=== PATIENT | female | born 1995 | race Caucasian/White ===

== ENCOUNTER 2019-03-24 17:42 | Emergency (ER) | payer SELFPAY ==
--- NOTE | 2019-03-24 17:55 | Event Note ---
ED Screening Note Date of service: 03/24/19 Time: 17:52 ED Screening Note: This is a 23 y.o. F. that presents to the ER with chest discomfort and cough for 2 weeks. Patient reports a heavy sensation as if someone is sitting on her chest. Current 1 pp 2 days. She is currently using her friend albuterol inhaler which improve cough. States progressing symptoms over past week. This initial assessment/diagnostic orders/clinical plan/treatment(s) is/are subject to change based on patients health status, clinical progression and re- assessment by fellow clinical providers in the ED. Further treatment and workup at subsequent clinical providers discretion. Patient/guardian urged not to elope from the ED as their condition may be serious if not clinically assessed and managed. Initial orders include: EKG & CXR
--- NOTE | 2019-03-24 19:04 | XRay Report ---
CHEST 1 VIEW INDICATION: Chest Pain. COMPARISON: None. FINDINGS: Support devices: None. Heart: Normal. Lungs/Pleura: No acute pulmonary or pleural findings. IMPRESSION: 1. No acute findings. Signer Name: Darnell Mark MD Signed: 03/24/2019 6:59 PM Workstation Name: [id number]
[2019-03-24] MEDS ORDERED: TYLENOL/CODEINE PO ONE (20:54)
[2019-03-24] MEDS ORDERED: ROBITUSSIN PO ONE (20:54)
[2019-03-24] MEDS ORDERED: DELTASONE PO ONE (21:11)
--- NOTE | 2019-03-24 21:16 | Emergency Department Report ---
Minor Respiratory - HPI Chief Complaint: Chest Pain Stated Complaint: HASMUKH/CHEST PAIN Time Seen by Provider: 03/24/19 17:51 Duration: 3 Days Pain Location: Nose, Chest Severity: moderate Minor Respiratory: Yes Rhinorrhea, Yes Able to Tolerate Fluids, Yes Cough, No Sore Throat, No Ear Pain, No Sick Contacts, No Hemoptysis, No Chest Pain, No Shortness of Breath, No Fever Other History: This is a 23-year-old female presents with intermittent productive coughing 2-3 days. She denies fevers/chills/shortness of breath. The patient states she's been using her inhaler was helping a bit. She denies any history of asthma. ED Review of Systems ROS: Stated complaint: HASMUKH/CHEST PAIN Other details as noted in HPI Comment: All other systems reviewed and negative ED Past Medical Hx - Past Medical History Previous Medical History?: No - Surgical History Past Surgical History?: No - Social History Smoking Status: Current Every Day Smoker - Medications Home Medications: Home Medications Medication Instructions Recorded Confirmed Last Taken Type ALBUTEROL Inhaler (OR & NICU) 2 puff IH QID PRN #1 inhalation 03/24/19 Unknown Rx [ProAir HFA Inhaler] Benzonatate [Tessalon Perles] 100 mg PO Q8HR #20 capsule 03/24/19 Unknown Rx guaiFENesin [Robitussin] 200 mg PO TID #60 ml 03/24/19 Unknown Rx Minor Respiratory Exam - Exam General: Vital signs noted. No distress. Alert and acting appropriately. HEENT: Yes Moist Mucous Membranes, No Pharyngeal Erythema, No Pharyngeal Exudates, No Rhinorrhea, No Conjuctival Injection, No Frontal Tenderness, No Maxillary Tenderness Ear: Neither TM Bulge, Neither TM Erythema, Neither EAC Pain, Neither EAC Discharge Neck: Yes Supple, No Adenopathy Lungs: Yes Good Air Exchange, No Wheezes, No Ronchi, No Stridor, No Cough, No Labored Respirations, No Retractions, No Use of Accessory Muscles, No Other Abnormal Lung Sounds Heart: Yes Regular, No Murmur Abdomen: Yes Normal Bowel Sounds, No Tenderness, No Peritoneal Signs Skin: No Rash, No Edema Neurologic: Alert and oriented, no deficits. Musculoskeletal: Unremarkable. ED Course Vital Signs 03/24/19 17:52 Temperature 98.5 F Pulse Rate 113 H Respiratory 20 Rate Blood Pressure 130/74 O2 Sat by Pulse 99 Oximetry ED Medical Decision Making - Radiology Data Radiology results: report reviewed, image reviewed INDICATION: Chest Pain. COMPARISON: None. FINDINGS: Support devices: None. Heart: Normal. Lungs/Pleura: No acute pulmonary or pleural findings. IMPRESSION: 1. No acute findings. Signer Name: Darnell Mark MD Signed: 03/24/2019 6:59 PM Workstation Name: [id number] Transcribed By: ANA CRISTINA Dictated By: Darnell Mark MD Electronically Authenticated By: Darnell Mark MD Signed Date/Time: 03/24/19 1859 No acute findings - Medical Decision Making This is a 23-year-old female presents with bronchitis. Patient received medication in the reports feeling better. Excellent chest x-ray completed there are no signs of acute inflammatory process Discussed the patient to take medications prescribed and follow up with primary care physician. Patient had no neurological deficit or respiratory distress. Critical care attestation.: If time is entered above; I have spent that time in minutes in the direct care of this critically ill patient, excluding procedure time. ED Disposition Clinical Impression: Bronchitis Upper respiratory infection Qualifiers: URI type: unspecified viral URI Qualified Code(s): J06.9 - Acute upper respiratory infection, unspecified Disposition: DC-01 TO HOME OR SELFCARE Is pt being admited?: No Does the pt Need Aspirin: No Condition: Stable Instructions: Upper Respiratory Infection (ED), Acute Bronchitis (ED) Additional Instructions: Make sure to follow up with the primary care physician as discussed. Take all your medications as you've been prescribed. If you have any worsening symptoms or develop new symptoms please return to ED immediately. Prescriptions: ALBUTEROL Inhaler (OR & NICU) [ProAir HFA Inhaler] 2 puff IH QID PRN #1 inhalation PRN Reason: Shortness Of Breath guaiFENesin [Robitussin] 200 mg PO TID #60 ml Benzonatate [Tessalon Perles] 100 mg PO Q8HR #20 capsule Referrals: PRIMARY CARE, [Primary Care Provider] - 3-5 Days [facility] [Outside] - 3-5 Days [facility] [Outside] - 3-5 Days Forms: Accompanied Note, Work/School Release Form(ED) Time of Disposition: 21:25
[2019-03-25 02:08] VITALS: BP 117/82
== END 2019-03-24 21:40 | disposition home or self-care (01) ==
LOC: ED 17:42
DX: J40 Bronchitis, not specified as acute or chronic (principal); J06.9 Acute upper respiratory infection, unspecified; F17.200 Nicotine dependence, unspecified, uncomplicated; Z79.899 Other long term (current) drug therapy
CPT/HCPCS: 71045; 93005; 93010; 99283; J7512